=== PATIENT | female | born 1975 | race Hispanic/Latino ===

== ENCOUNTER 2021-11-11 10:42 | Day surgery (SDC) | payer OTHER ==
[2021-11-10 15:14] LABS: BASOPHILS % (AUTO) 0.6 % (0.0-5.0); EOSINOPHILS % (AUTO) 0.9 % (0.0-8.0); HEMATOCRIT 41.6 % (36-48); LYMPHOCYTES % (AUTO) 20.6 % (21.0-51.0); MEAN CORPUSCULAR HEMOGLOBIN 30.4 pg (27.0-33.0); MEAN CORPUSCULAR HGB CONC 33.7 g/dL (32.0-36.0); MEAN CORPUSCULAR VOLUME 90.2 fL (79-99); MONOCYTES % (AUTO) 7.7 % (3.0-13.0); NEUTROPHILS % (AUTO) 69.5 % (40.0-77.0); PLATELET COUNT (AUTO) 308 K/uL (130-400); RED BLOOD CELL COUNT(AUTO) 4.61 MIL/uL (4.00-5.50); RED CELL DISTRIBUTION WIDTH 13.3 % (11.0-15.5); WHITE BLOOD COUNT (AUTO) 10.2 K/uL (4.8-10.8)
[2021-11-10 15:36] VITALS: BP 135/78
[~2021-11-11] VITALS: Ht 165.1 cm; Wt 80.5 kg
[2021-11-11] VITALS (14 sets, daily range): BP systolic 91–125; BP diastolic 40–71
[~2021-11-11 10:42] MED LIST: AMLO-257 PO; CEFAZOLIN SODIUM 1 GM VIAL IVP SCH; ESOM40CA PO; FLUO40CA7 PO; LACTATED RINGERS 1000ML 1,000 ML IV SCH
[2021-11-11] MEDS ORDERED: ONDANSETRON 4MG INJ ONE (12:24)
[2021-11-11] MEDS ORDERED: FENTANYL CITRATE PF 50 MCG/1 ML 2ML VIAL ONE ×2 (12:24→14:02)
[2021-11-11] MEDS ORDERED: MIDAZOLAM HCL 1 MG/ML 2ML VIAL ONE (12:24)
[2021-11-11] MEDS ORDERED: PROPOFOL 10 MG/ML 20ML VIAL IV ONE (12:37)
[2021-11-11] MEDS ORDERED: ROCURONIUM 10MG/1ML SYR 10 MG/ML ML ONE (12:38)
[2021-11-11] MEDS ORDERED: MEPERIDINE-PF 25 MG/ML SYG ONE ×3 (12:54→13:53)
[2021-11-11] MEDS ORDERED: BUPIVACAINE/PF 0.5% 30ML VIAL ONE (12:57)
[2021-11-11] MEDS ORDERED: CIPR-278 PO (13:01)
[2021-11-11] MEDS ORDERED: SEMA1PEN3 SQ (13:01)
[2021-11-11] MEDS ORDERED: DEXAMETHASONE SOD PHOSPHATE 10MG/ML 1ML VIAL ONE (13:05)
[2021-11-11] MEDS ORDERED: EPHEDRINE SULFATE 50 MG/ML AMPULE ONE (13:05)
[2021-11-11] MEDS ORDERED: NEOSTIGMINE 5MG/5ML SYR IV ONE (13:28)
[2021-11-11] MEDS ORDERED: GLYCOPYRROLATE 1 MG/5 ML SYRINGE ONE (13:28)
[2021-11-11] MEDS ORDERED: KETOROLAC 30MG VIAL (30MG/ML) ONE (13:48)
[2021-11-11] MEDS ORDERED: HYDROCODONE/ACETAMINOPHEN 5/325 MG TAB ONE (14:40)
== END 2021-11-11 15:15 | disposition home or self-care (01) ==
LOC: DAH 10:42 → EDSTATUS 13:00 → DAH 15:15
PROVIDERS: ATTEND Obstetrics & Gynecology
DX: N92.1 Excessive and frequent menstruation with irregular cycle (principal); Z30.432 Encounter for removal of intrauterine contraceptive device; Z30.2 Encounter for sterilization; N85.8 Other specified noninflammatory disorders of uterus; I10 Essential (primary) hypertension; G43.909 Migraine, unspecified, not intractable, without status migrainosus; Z90.49 Acquired absence of other specified parts of digestive tract; Z98.84 Bariatric surgery status; Z83.438 Family history of other disorder of lipoprotein metabolism and other lipidemia; Z82.0 Family history of epilepsy and other diseases of the nervous system; Z82.49 Family history of ischemic heart disease and other diseases of the circulatory system; Z72.89 Other problems related to lifestyle
CPT/HCPCS: 36415; 58301; 58563; 58670; 84703; 85025; 86850; 86900; 86901; 87635; A4215; A4221; A4222; A4223; A4351; A4355; A4663; C1769 ×2; C9803; G0168; J0690; J1100; J1885; J2175 ×3; J2250; J2405; J2704; J2710; J3010 ×2; J3490 ×3; J7030 ×2; J7120